=== PATIENT | male | born 1970 | race Caucasian/White ===

== ENCOUNTER 2024-04-16 19:18 | Emergency (ER) | payer OTHER ==
[~2024-04-16] VITALS: Ht 180.3 cm; Wt 265.0 kg
[2024-04-16] MEDS: HYDROcodone-ACET 5/325MG TAB PO ONE (19:41)
[2024-04-16] MEDS: ceFAZolin 1GM/50ML 50 ML IV ONE (19:41)
[2024-04-16] MEDS: TETANUS-DIPTH-ACEL PERTUSSIS 0.5ML SYR Tdap IM ONE (19:43)
[2024-04-16 20:12] VITALS: RESP 18
[2024-04-16] MEDS ORDERED: HYDR-4902 PO (22:31)
[2024-04-16] MEDS ORDERED: AMOX875T4 PO (22:31)
[2024-04-16 23:20] VITALS: BP 131/81; PULSE 69; RESP 16; TEMP 97.7; O2SAT 94
== END 2024-04-16 23:34 | disposition home or self-care (01) ==
LOC: ER 19:18
DX: S68.022A Partial traumatic metacarpophalangeal amputation of left thumb, initial encounter (principal); W54.0XXA Bitten by dog, initial encounter; Y93.89 Activity, other specified; Y92.89 Other specified places as the place of occurrence of the external cause; Y99.8 Other external cause status
CPT/HCPCS: 73140; 90471; 90715; 96365; 99285; J0690